=== PATIENT | female | born 1955 | race Caucasian/White ===

== ENCOUNTER → 2018-02-19 14:00 | Outpatient (CLI) | payer SELFPAY | PROVIDERS: PCP Family Medicine | DX: Z23 Encounter for immunization (principal) | CPT/HCPCS: 90471; 90686 ==

== ENCOUNTER → 2018-04-05 07:43 | Outpatient (CLI) | payer OTHER, SELFPAY ==
--- NOTE | 2018-04-05 07:47 | DI.MG.S_ITS ---
UNILATERAL LEFT DIGITAL DIAGNOSTIC MAMMOGRAM 3D/2D SHORT-TERM FOLLOW-UP: 04/05/2018 CLINICAL: Short term follow up Left breast. Comparison is made to exams dated: 10/30/2017 mammogram, 10/05/2017 mammogram - [facility], 09/25/2016 mammogram, and 08/23/2015 mammogram - [facility]. There are scattered fibroglandular elements in left breast. There is a benign oval low density asymmetry with an indistinct margin in the left breast middle depth central to the nipple seen on the mediolateral oblique view only. This is less prominent. No other significant masses or calcifications are seen in the breast. IMPRESSION: There is no mammographic evidence of malignancy. A 1 year screening mammogram is recommended. This exam was interpreted at Station ID: [id number]. NOTE: For mammograms, a report in lay terms will be sent to the patient. Approximately 15% of breast malignancies will not be visualized mammographically. In the management of a palpable breast mass, a negative mammogram must not discourage biopsy of a clinically suspicious lesion. Electronically Signed By: Wagner dc/dominic:04/05/2018 09:14:13 letter sent: Normal Exam ACR BI-RADS Category 2: Benign Finding(s) 3342F
== END ==
PROVIDERS: Visit Provider Family Medicine
DX: R92.8 Other abnormal and inconclusive findings on diagnostic imaging of breast (principal)
CPT/HCPCS: 77065; G0279

== ENCOUNTER → 2018-10-07 07:18 | Outpatient (CLI) | payer OTHER, SELFPAY ==
--- NOTE | 2018-10-07 | DI.MG.S_ITS ---
BILATERAL DIGITAL SCREENING MAMMOGRAM 3D/2D WITH CAD: 10/07/2018 CLINICAL: Routine screening. Comparison is made to exams dated: 10/30/2017 mammogram, 10/05/2017 mammogram - [facility], and 09/25/2016 mammogram - [facility]. There are scattered fibroglandular elements in both breasts. Current study was also evaluated with a Computer Aided Detection (CAD) system. There are benign calcifications in both breasts. No significant masses, calcifications, or other findings are seen in either breast. There has been no significant interval change. IMPRESSION: There is no mammographic evidence of malignancy. A 1 year screening mammogram is recommended. This exam was interpreted at Station ID: [id number]. NOTE: For mammograms, a report in lay terms will be sent to the patient. Approximately 15% of breast malignancies will not be visualized mammographically. In the management of a palpable breast mass, a negative mammogram must not discourage biopsy of a clinically suspicious lesion. Electronically Signed By: Jorge A brooke/dominic:10/07/2018 08:50:56 letter sent: Normal Exam ACR BI-RADS Category 2: Benign Finding(s) 3342F
[2018-10-07 08:45] LABS: Hemoglobin A1C% w Est Avg Glu 5.8 % (4.0-6.0)
[2018-10-07 08:51] LABS: BUN Creatinine Ratio 33.3 (6-22); Blood Urea Nitrogen 20 mg/dL (7-17); Calcium 9.5 mg/dL (8.4-10.2); Carbon Dioxide 26 mmol/L (22-32); Chloride 102 mmol/L (98-107); Estimated Glomerular Filt Rate > 60.0 mL/min (>60); Glucose 117 mg/dL (80-110); HEMOLYSIS < 15 (0-50); Potassium 3.9 mmol/L (3.4-5.1); Sodium 139 mmol/L (137-145)
[2018-10-07 08:53] LABS: Creatinine Urine Random 131.2 mg/dL
[2018-10-07 08:55] LABS: Microalbumi Creatinin Ratio Ur 10.6 ug/mg CR (<30); Microalbumin Urine Random 1.4 mg/dL (0-1.6)
== END ==
PROVIDERS: PCP Family Medicine; Visit Provider Family Medicine
DX: Z12.31 Encounter for screening mammogram for malignant neoplasm of breast (principal); E11.9 Type 2 diabetes mellitus without complications
CPT/HCPCS: 36415; 77063; 77067; 80048; 82043; 82570; 83036